=== PATIENT | female | born 2000 | race Two or more races ===

== ENCOUNTER 2020-05-07 07:53 | Inpatient (IN) | payer MEDICAID, OTHER ==
[~2020-05-07] VITALS: Ht 157.5 cm; Wt 79.0 kg
[2020-05-07 09:08] LABS: Basophils # (auto) 0.1 10 ^3/uL (0-0.2); Eosinophils # (auto) 0 10 ^3/uL (0-0.8); Eosinophils % (auto) 0.3 % (0.0-7.0); Hematocrit 39.1 % (36.0-46.0); Lymphocytes # (auto) 0.9 10 ^3/uL (0.4-5.4); Monocytes # (auto) 0.7 10 ^3/uL (0-1.3); Neutrophils # (auto) 12.1 10 ^3/uL (1.6-8.6); Neutrophils % (auto) 87.5 % (37.0-80.0)
[2020-05-07 09:10] LABS: Basophils % (auto) 0.6 % (0.0-2.0); Hemoglobin 12.4 g/dL (12.2-16.2); Lymphocytes % (auto) 6.5 % (10.0-50.0); Mean Corpuscular Hemoglobin 24.7 pg (28.0-32.0); Mean Corpuscular Hgb Conc. 31.7 g/dL (32.0-36.0); Mean Corpuscular Volume 77.8 fL (80.0-100.0); Monocytes % (auto) 5.1 % (0.0-12.0); Platelet Count (auto) 296 10^3/uL (140-450); Red Blood Cells 5.03 10^6/uL (4.0-5.20); White Blood Cell 13.8 10^3/uL (4.4-10.8)
[2020-05-07] MEDS ORDERED: ONDANSETRON HCL 4 MG/2 ML VIAL IV ONE (09:15)
[2020-05-07] MEDS ORDERED: SODIUM CHLORIDE 0.9% 1,000 ML IV ONE (09:15)
[2020-05-07 09:31] LABS: Albumin 3.7 g/dL (3.4-5.0); Calcium 8.3 mg/dL (8.5-10.1); Magnesium 2.2 mg/dL (1.6-2.6); Potassium 4.1 mmol/L (3.5-5.1)
[2020-05-07 09:35] LABS: BUN/Creatinine Ratio 22.5; Bilirubin, Total 0.3 mg/dL (0.2-1.0)
[2020-05-07] MEDS ORDERED: cefTRIAXone 1GM/50ML D5W 50 ML IV ONE (11:45)
[2020-05-07] MEDS ORDERED: metroNIDAZOLE 500MG/100ML 100 ML IV ONE (11:45)
[2020-05-07 14:19] LABS: Urine Bacteria NONE SEEN /hpf (None Seen); Urine Blood Negative /uL (Negative); Urine Mucus FEW (None Seen); Urine Specific Gravity 1.018 (1.001-1.035); Urine WBC 4 /hpf (0 - 5)
[2020-05-07] MEDS ORDERED: HYDROcodone-ACET 10/325MG TAB PO PRN (18:00)
[2020-05-07] MEDS ORDERED: NITROGLYCERIN 0.4 MG SL TAB SL PRN (18:00)
[2020-05-07] MEDS ORDERED: ONDANSETRON HCL 4 MG/2 ML VIAL IV PRN (18:00)
[2020-05-07] MEDS ORDERED: ACETAMINOPHEN 325 MG TAB PO PRN (18:00)
[2020-05-07] MEDS ORDERED: MORPHINE SULF INJ 2 MG/ML SYRINGE 1ML IV PRN ×2 (18:00)
[2020-05-08 07:16] LABS: Basophils # (auto) 0 10 ^3/uL (0-0.2); Basophils % (auto) 0.4 % (0.0-2.0); Eosinophils # (auto) 0 10 ^3/uL (0-0.8); Eosinophils % (auto) 0.3 % (0.0-7.0); Lymphocytes # (auto) 1.2 10 ^3/uL (0.4-5.4)
[2020-05-08 07:18] LABS: Hematocrit 35.2 % (36.0-46.0); Hemoglobin 11.7 g/dL (12.2-16.2); Mean Corpuscular Hemoglobin 25.8 pg (28.0-32.0); Mean Corpuscular Hgb Conc. 33.2 g/dL (32.0-36.0); Mean Corpuscular Volume 77.6 fL (80.0-100.0); Monocytes # (auto) 0.6 10 ^3/uL (0-1.3); Monocytes % (auto) 8.9 % (0.0-12.0); Neutrophils # (auto) 4.9 10 ^3/uL (1.6-8.6); Neutrophils % (auto) 72.4 % (37.0-80.0); Platelet Count (auto) 258 10^3/uL (140-450); Red Blood Cells 4.54 10^6/uL (4.0-5.20); Red Cell Distribution Width 16.2 % (11.8-14.3); White Blood Cell 6.7 10^3/uL (4.4-10.8)
[2020-05-08 07:29] LABS: Albumin 3.2 g/dL (3.4-5.0); Calcium 8.1 mg/dL (8.5-10.1); Magnesium 2.3 mg/dL (1.6-2.6); Potassium 3.6 mmol/L (3.5-5.1)
[2020-05-08 07:32] LABS: BUN/Creatinine Ratio 17.9; Bilirubin, Total 0.4 mg/dL (0.2-1.0); Total Protein 7.2 g/dL (6.4-8.2)
[2020-05-08] MEDS: ENOXAPARIN SOD 40 MG/0.4 ML SYRINGE SC SCH (10:00)
[2020-05-08] MEDS: PANTOPRAZOLE 40 MG/10 ML VIAL INJ IV SCH (10:00)
[2020-05-08] MEDS ORDERED: OMNIPAQUE ORAL SOLN 500ml 12mg/ml PO ONE (11:24)
[2020-05-08] MEDS: PIPERACILLIN-TAZOB 3.375GM 100 ML IV SCH ×2 (12:37→18:19)
[2020-05-08] MEDS: metroNIDAZOLE 500MG/100ML 100 ML IV SCH ×2 (17:40→23:00)
[2020-05-09 02:00] VITALS: BP 119/63
[2020-05-09] MEDS: metroNIDAZOLE 500MG/100ML 100 ML IV SCH ×3 (06:28→17:31)
[2020-05-09 08:00] VITALS: BP 93/55
[2020-05-09] MEDS: PANTOPRAZOLE 40 MG/10 ML VIAL INJ IV SCH (09:19)
[2020-05-09] MEDS: PIPERACILLIN-TAZOB 3.375GM 100 ML IV SCH ×4 (09:19→18:48)
[2020-05-09] MEDS: ENOXAPARIN SOD 40 MG/0.4 ML SYRINGE SC SCH (09:19)
[2020-05-09 10:59] LABS: Basophils # (auto) 0 10 ^3/uL (0-0.2); Eosinophils # (auto) 0 10 ^3/uL (0-0.8); Eosinophils % (auto) 1.2 % (0.0-7.0); Hemoglobin 11.9 g/dL (12.2-16.2); Monocytes # (auto) 0.4 10 ^3/uL (0-1.3); Neutrophils # (auto) 2.2 10 ^3/uL (1.6-8.6); Nucleated Red Blood Cells % 0.1 %; White Blood Cell 3.9 10^3/uL (4.4-10.8)
[2020-05-09 11:03] LABS: Basophils % (auto) 0.2 % (0.0-2.0); Hematocrit 36.9 % (36.0-46.0); Lymphocytes # (auto) 1.2 10 ^3/uL (0.4-5.4); Lymphocytes % (auto) 31.4 % (10.0-50.0); Mean Corpuscular Hemoglobin 25.4 pg (28.0-32.0); Mean Corpuscular Hgb Conc. 32.2 g/dL (32.0-36.0); Mean Corpuscular Volume 78.9 fL (80.0-100.0); Monocytes % (auto) 11.1 % (0.0-12.0); Neutrophils % (auto) 56.1 % (37.0-80.0); Platelet Count (auto) 232 10^3/uL (140-450); Red Blood Cells 4.67 10^6/uL (4.0-5.20); Red Cell Distribution Width 15.8 % (11.8-14.3)
[2020-05-09 11:22] LABS: BUN/Creatinine Ratio 18.3; Calcium 7.9 mg/dL (8.5-10.1); Magnesium 2.2 mg/dL (1.6-2.6); Phosphorus 3.1 mg/dL (2.5-4.90); Potassium 3.4 mmol/L (3.5-5.1)
[2020-05-09 15:28] LABS: Alanine Aminotransferase 25 U/L (13-56); Aspartate Aminotransferase 20 U/L (15-37); Bilirubin, Direct < 0.1 mg/dL (0-0.2); Triglycerides 51 mg/dL (< 150)
[2020-05-09] MEDS ORDERED: POTASSIUM CHL 20MEQ/100ML 100 ML IV ONE (15:30)
[2020-05-09 15:31] LABS: Alkaline Phosphatase 60 U/L (45-117); Bilirubin, Total 0.3 mg/dL (0.2-1.0); Pre Albumin 13.9 mg/dL (20.0-40.0); Total Protein 7.1 g/dL (6.4-8.2)
[2020-05-09 16:00] VITALS: BP 115/64
[2020-05-09] MEDS ORDERED: CLINIMIX PER PHARMACY 0 ML IV SCH (16:00)
[2020-05-09] MEDS ORDERED: HYDROmorphone HCL 2 MG/ML VL IV PRN (18:30)
[2020-05-09] MEDS ORDERED: AMINO ACID ELECTROLYTE W/ CALC 1,000 ML IV SCH (20:00)
[2020-05-10] VITALS: BP 107/58
[2020-05-10] MEDS ORDERED: DEXTROSE (50%) 50ML SYRG IV SCH
[2020-05-10] MEDS: PIPERACILLIN-TAZOB 3.375GM 100 ML IV SCH ×4 (00:08→17:31)
[2020-05-10] MEDS: ACCU-CHEK COMFORT CURVE STRIP VI SCH ×5 (00:09→23:45)
[2020-05-10] MEDS: metroNIDAZOLE 500MG/100ML 100 ML IV SCH ×5 (00:09→23:14)
[2020-05-10] MEDS: InsuLIN REG 1unit/0.01ml Soln (100units/ml) SC SCH ×5 (06:00→23:45)
[2020-05-10 06:40] LABS: Basophils # (auto) 0 10 ^3/uL (0-0.2); Eosinophils # (auto) 0.1 10 ^3/uL (0-0.8); Lymphocytes # (auto) 1.5 10 ^3/uL (0.4-5.4); Monocytes # (auto) 0.4 10 ^3/uL (0-1.3); Neutrophils # (auto) 1.8 10 ^3/uL (1.6-8.6); Neutrophils % (auto) 48.4 % (37.0-80.0); White Blood Cell 3.8 10^3/uL (4.4-10.8)
[2020-05-10 06:49] LABS: Basophils % (auto) 0.2 % (0.0-2.0); Eosinophils % (auto) 1.6 % (0.0-7.0); Hematocrit 36.7 % (36.0-46.0); Hemoglobin 12.1 g/dL (12.2-16.2); Lymphocytes % (auto) 40.4 % (10.0-50.0); Mean Corpuscular Hemoglobin 25.6 pg (28.0-32.0); Mean Corpuscular Hgb Conc. 32.9 g/dL (32.0-36.0); Mean Corpuscular Volume 77.6 fL (80.0-100.0); Monocytes % (auto) 9.4 % (0.0-12.0); Platelet Count (auto) 288 10^3/uL (140-450); Red Blood Cells 4.73 10^6/uL (4.0-5.20); Red Cell Distribution Width 15.7 % (11.8-14.3)
[2020-05-10 07:20] LABS: Albumin 3.2 g/dL (3.4-5.0); BUN/Creatinine Ratio 14.3; Bilirubin, Total 0.3 mg/dL (0.2-1.0); Magnesium 2.2 mg/dL (1.6-2.6); Phosphorus 2.8 mg/dL (2.5-4.90); Total Protein 7.2 g/dL (6.4-8.2)
[2020-05-10 08:00] VITALS: BP 99/65
[2020-05-10] MEDS: PANTOPRAZOLE 40 MG/10 ML VIAL INJ IV SCH (09:58)
[2020-05-10] MEDS: ENOXAPARIN SOD 40 MG/0.4 ML SYRINGE SC SCH (09:58)
[2020-05-10 11:59] LABS: INR 1.11 (0.9-1.15)
[2020-05-10] MEDS ORDERED: AMINO ACID ELECTROLYTE W/ CALC 1,000 ML IV SCH ×2 (12:00→20:00)
[2020-05-10 16:00] VITALS: BP 106/60
[2020-05-11] VITALS: BP 114/75
[2020-05-11] MEDS: PIPERACILLIN-TAZOB 3.375GM 100 ML IV SCH ×3 (00:49→12:00)
[2020-05-11] MEDS: metroNIDAZOLE 500MG/100ML 100 ML IV SCH ×3 (04:52→23:14)
[2020-05-11] MEDS: InsuLIN REG 1unit/0.01ml Soln (100units/ml) SC SCH ×3 (06:00→16:40)
[2020-05-11] MEDS: ACCU-CHEK COMFORT CURVE STRIP VI SCH ×3 (06:04→16:40)
[2020-05-11 08:00] VITALS: BP 124/62
[2020-05-11 08:11] LABS: Potassium 3.7 mmol/L (3.5-5.1)
[2020-05-11 08:18] LABS: BUN/Creatinine Ratio 13.3; Bilirubin, Total 0.3 mg/dL (0.2-1.0); Calcium 7.8 mg/dL (8.5-10.1); Magnesium 2.1 mg/dL (1.6-2.6); Phosphorus 3.4 mg/dL (2.5-4.90); Total Protein 6.7 g/dL (6.4-8.2)
[2020-05-11] MEDS: PANTOPRAZOLE 40 MG/10 ML VIAL INJ IV SCH (10:00)
[2020-05-11] MEDS: ENOXAPARIN SOD 40 MG/0.4 ML SYRINGE SC SCH (10:20)
[2020-05-11 16:00] VITALS: BP 116/64
[2020-05-11] MEDS ORDERED: AMINO ACID ELECTROLYTE W/ CALC 1,000 ML IV SCH (20:00)
[2020-05-12] VITALS: BP 116/72
[2020-05-12] MEDS: ACCU-CHEK COMFORT CURVE STRIP VI SCH ×4 (00:11→17:30)
[2020-05-12] MEDS: PIPERACILLIN-TAZOB 3.375GM 100 ML IV SCH ×4 (00:11→17:30)
[2020-05-12] MEDS: metroNIDAZOLE 500MG/100ML 100 ML IV SCH ×4 (04:54→22:53)
[2020-05-12] MEDS: InsuLIN REG 1unit/0.01ml Soln (100units/ml) SC SCH ×4 (06:00→17:29)
[2020-05-12 08:00] VITALS: BP 90/55
[2020-05-12] MEDS: PANTOPRAZOLE 40 MG/10 ML VIAL INJ IV SCH (09:56)
[2020-05-12] MEDS: ENOXAPARIN SOD 40 MG/0.4 ML SYRINGE SC SCH (10:06)
[2020-05-12 11:52] LABS: Potassium 3.6 mmol/L (3.5-5.1)
[2020-05-12 12:00] LABS: Albumin 3.3 g/dL (3.4-5.0); BUN/Creatinine Ratio 9.6; Bilirubin, Total 0.3 mg/dL (0.2-1.0); Calcium 8.1 mg/dL (8.5-10.1); Magnesium 2.1 mg/dL (1.6-2.6); Phosphorus 3.6 mg/dL (2.5-4.90); Total Protein 7.4 g/dL (6.4-8.2)
[2020-05-12 16:00] VITALS: BP 90/56
[2020-05-12] MEDS ORDERED: AMINO ACID ELECTROLYTE W/ CALC 1,000 ML IV SCH (20:00)
[2020-05-13] VITALS: BP 104/67
[2020-05-13] MEDS: PIPERACILLIN-TAZOB 3.375GM 100 ML IV SCH ×3 (00:22→11:22)
[2020-05-13] MEDS: ACCU-CHEK COMFORT CURVE STRIP VI SCH ×2 (00:23→06:00)
[2020-05-13] MEDS: metroNIDAZOLE 500MG/100ML 100 ML IV SCH ×2 (04:54→09:51)
[2020-05-13] MEDS: InsuLIN REG 1unit/0.01ml Soln (100units/ml) SC SCH ×2 (06:00)
[2020-05-13 06:57] LABS: Potassium 3.9 mmol/L (3.5-5.1)
[2020-05-13 07:17] LABS: Albumin 3.3 g/dL (3.4-5.0); BUN/Creatinine Ratio 10.6; Bilirubin, Total 0.3 mg/dL (0.2-1.0); Calcium 8.4 mg/dL (8.5-10.1); Magnesium 2.2 mg/dL (1.6-2.6); Phosphorus 3.5 mg/dL (2.5-4.90); Total Protein 7.3 g/dL (6.4-8.2)
[2020-05-13 08:00] VITALS: BP 104/69
[2020-05-13] MEDS: PANTOPRAZOLE 40 MG/10 ML VIAL INJ IV SCH (09:48)
[2020-05-13] MEDS: ENOXAPARIN SOD 40 MG/0.4 ML SYRINGE SC SCH (09:51)
[2020-05-13 10:45] VITALS: BP 104/69
[2020-05-13] MEDS ORDERED: AMINO ACID ELECTROLYTE W/ CALC 1,000 ML IV SCH (20:00)
== END 2020-05-13 12:40 | disposition home health service (06) | DRG 254 ==
LOC: ER 07:53 → TELE 07:54 → TELE-WESTW 05-08 23:42
PROVIDERS: ADMIT Internal Medicine; ATTEND Internal Medicine
PROC: 3E0336Z Introduction of Nutritional Substance into Peripheral Vein, Percutaneous Approach (ICD-10-PCS; principal; 2020-05-11)
DX: K35.80 Unspecified acute appendicitis (principal); U07.1 COVID-19; E87.2 Acidosis; E88.09 Other disorders of plasma-protein metabolism, not elsewhere classified; E86.0 Dehydration; D72.829 Elevated white blood cell count, unspecified; F17.290 Nicotine dependence, other tobacco product, uncomplicated
CPT/HCPCS: 36415; 71045; 74176; 76705; 80048; 80053; 80076; 81001; 82040; 82150; 82962; 83690; 83735; 84100; 84478; 84702; 85025; 85610; 85730; 86850; 86900; 86901; 87426; 96361; 96365; 96368; 96375; C9113; G0378; J0696; J2405; J2543; J3480; J3490

== ENCOUNTER 2020-05-21 17:45 | Emergency (ER) | payer MEDICAID ==
[~2020-05-21] VITALS: Ht 154.9 cm; Wt 76.2 kg
[2020-05-21 17:51] VITALS: BP 123/54
== END 2020-05-21 20:07 | disposition home or self-care (01) ==
LOC: ER 17:45
DX: T82.514A Breakdown (mechanical) of infusion catheter, initial encounter (principal)

== ENCOUNTER 2020-05-22 08:43 | Emergency (ER) | payer MEDICAID ==
[~2020-05-22] VITALS: Ht 154.9 cm; Wt 76.2 kg
[2020-05-22 09:50] VITALS: BP 110/70
== END 2020-05-22 10:06 | disposition home or self-care (01) ==
LOC: ER 08:43
DX: T82.898A Other specified complication of vascular prosthetic devices, implants and grafts, initial encounter (principal)